=== PATIENT | female | born 1990 | race Caucasian/White ===

== ENCOUNTER 2016-07-22 17:22 | Emergency (ER) | payer OTHER ==
[2016-07-22 17:42] VITALS: BP 128/82; PULSE 82; RESP 14; O2SAT 100
--- NOTE | 2016-07-22 18:44 | ED.REPORT ---
HPI-Head Prob / Injury Date of Service Jul 22, 2016 ED Provider: Doc,Ed MD History of Present Illness: head pain since yesterday, pressure and burning pain. denies injury. no medications. no nausea. not feeling ill. no others sick. is starving, wants to eat and is able to. primary care was queck. will follow with office. 01/25 pain, has seasonal allergies. Nursing Notes Stated Complaint: PROGESSIVE HEAD PAIN SENT FROM FOR CT Chief Complaint: Headache Nursing Notes Reviewed: Yes Allergies: Coded Allergies: No Known Allergies (Unverified Allergy, Unknown, 02/03/15) General Time Seen by Provider: 18:39 Chief Complaint Other (head pain) Hx Obtained From: Patient Onset Occurred: Yesterday Severity: Current: Pain level 10 out of 10 Past Medical History Past Medical History seasonal allergies Past Surgical History pseudotumor cebrei with shunt placement, pilondial cyst Reports: Cholecystectomy Smoking History Current Every Day Smoker (1/4 pack a day for 10 years) Social History Alcohol Use: Denies alcohol use Drug Use: Denies drug use Other Social History: Occupation lives with boyfriend, no work or school 07/23/2015 Ambulatory Status Independent Review of Systems Basic Review of Systems Respiratory: No shortness of breath, No cough, No wheeze Hematologic: No bleeding, No bruising Psychiatric: Normal thought content Physical Exam Initial Vital Signs Vital Signs (First) Date Time Temp Pulse Resp B/P Pulse Ox O2 Delivery O2 Flow Rate FiO2 07/22/16 17:42 82 14 128/82 100 Room Air Initial VS: Reviewed, Vital signs normal Respiratory: Breath sounds normal, Clear to auscultation, No respiratory distress Cardiovascular: Regular rate & rhythm, Heart sounds normal, Intact distal pulses Abdomen / GI: Soft, Non-tender, No guarding, No rebound, No distention Back: No CVA tenderness Lymphatic: No lymphadenopathy Extremities: Vascular intact, Neuro intact, No swelling, No tenderness Skin: Warm, Dry, No cyanosis Psychiatric: Mood/affect normal, Behavior normal, Normal thought content General/Constitutional: Awake, Alert, No acute distress, Well appearing, Well developed, Well hydrated, Well nourished, Cooperative, Not toxic appearing Head / Eyes: Atraumatic, Normocephalic, PERRL, EOMI, No nystagmus ENT: Atraumatic, Airway patent, Mucous membranes moist, Pharynx NL Neck: Atraumatic, Supple, No meningismus, Full range of motion Neurologic: Oriented X3, Speech NL, No motor deficits Respiratory / Chest: Atraumatic, Breath sounds NL, Breath sounds = bilat Cardiovascular: Heart rate NL, Regular rhythm, Heart sounds NL, No gallop Interpretation & Diagnostics Interpretation & Diagnostics: INDICATIONS: head pain TECHNIQUE: Noncontrast 3.0 mm axial images acquired from the frontal sinuses to the mid-sella, with coronal and sagittal reformats. COMPARISON: [facility], CT, CT BRAIN WO CON, 07/22/2016, 19:09. FINDINGS: Image quality: Excellent. Maxillary Sinuses: No bony remodeling or destruction. There is mild mucosal thickening in the left maxillary sinus with associated air-fluid level. Ethmoid Air Cells: No bony remodeling or destruction. Sinuses are clear. Sphenoid Sinuses: No bony remodeling or destruction. There is mild mucosal thickening bilaterally with a small air-fluid level in the left sphenoid sinus. Frontal Sinuses: No bony remodeling or destruction. Sinuses are clear. Ostiomeatal Complexes: There is moderate mucosal thickening along the left ostiomeatal complex. No Lucas cells. Miscellaneous: Visualized intra-orbital contents are normal. No malini bullosa or paradoxical turbinate curvature. There is minimal rightward nasal septal deviation. IMPRESSION: 1. Sinus mucosal disease with air fluid levels in the left maxillary and sphenoid sinuses suggesting acute sinusitis. 2. Mucosal opacification of the left ostiomeatal complex Dictated by: Benjamin Torres M.D. on 07/22/2016 at 19:35 Approved by: Benjamin Torres M.D. on 07/22/2016 at 19:40 Lab Results Interpretation Result Diagram: 07/22/16 1858 07/22/16 1858 Test 07/22/16 18:58 White Blood Count 13.6th/mm3 (3.8-10.1) Red Blood Count 4.59mil/mm3 (3.90-5.20) Hemoglobin 13.5g/dL (12.0-15.6) Hematocrit 40.5% (35.0-46.0) Mean Corpuscular Volume 88.2fL (81-100) Mean Corpuscular Hemoglobin 29.4pg (27.0-35.0) Mean Corpuscular Hemoglobin Concent 33.3% (32.0-37.0) Red Cell Distribution Width 12.7% (12.3-15.4) Platelet Count 337bil/L (150-400) Neutrophils (%) (Auto) 63.4% (40-74) Lymphocytes (%) (Auto) 25.3% (14-46) Monocytes (%) (Auto) 5.9% (4-12) Eosinophils (%) (Auto) 4.8% (0-5) Basophils (%) (Auto) 0.4% (0-3) Erythrocyte Sedimentation Rate 10mm/hr (0-32) Sodium Level 140mEq/L (134-144) Potassium Level 4.5mEq/L (3.5-5.2) Chloride Level 103mEq/L (97-108) Carbon Dioxide Level 23mmol/L (18-29) Blood Urea Nitrogen 13mg/dL (6-20) Creatinine 0.61mg/dL (0.57-1.00) Estimat Glomerular Filtration Rate 167mL/min (>59) Glucose Level 89mg/dL (60-99) Calcium Level 9.7mg/dL (8.5-10.1) Total Bilirubin 0.3mg/dL (0.0-1.2) Aspartate Amino Transf (AST/SGOT) 16U/L (0-50) Alanine Aminotransferase (ALT/SGPT) 16U/L (0-32) Alkaline Phosphatase 71U/L (25-150) Total Protein 7.8g/dL (6.4-8.4) Albumin 4.6g/dL (3.4-5.0) Hold Shaffer Top Tube Received (Received) CT Head Interpretation ECHNIQUE: Noncontrast 4.5 mm thick angled axial sections acquired from the foramen magnum to the vertex, with coronal reformats. COMPARISON: None. FINDINGS: Image quality: Excellent. CSF spaces: Basal cisterns are patent. No extra-axial fluid collections. Ventricles are normal in size and shape. There is a right posterior parietal ventriculotomy shunt catheter which slightly crosses midline with tip posterior to the left thalamus. There is associated mild streak artifact. Brain: No intracranial hemorrhage, mass, or mass effect. Bright-white matter interface is normal. Skull and face: Calvarium and visualized facial bones demonstrate no acute fractures. Sinuses: Visualized sinuses demonstrate air-fluid levels in the left maxillary sinus which are partially visualized. There is mild mucosal thickening within the left sphenoid sinus. Mastoid air cells are clear. IMPRESSION: 1. No definite acute intracranial abnormality. 2. Right parietal ventricular shunt catheter demonstrated without evidence of ventriculomegaly. 3. Sinus mucosal disease with air-fluid levels in the left maxillary sinus compatible with acute sinusitis. Dictated by: Benjamin Torres M.D. on 07/22/2016 at 19:24 Approved by: Benjamin Torres M.D. on 07/22/2016 at 19:27 Re-Eval/Medical Decision Med Decision/Clinical Course 26 year old female presents with 1 day hx of head pain with burning sensation in center of face. CT indicates acute sinusitis. No sign of closed head injury or subdural hematoma Discharge & Departure Primary Impression: Sphenoid sinusitis Chronicity: acute Disposition: Home Patient Instructions: Sinusitis (ED) Additional Instructions: From your description of your symptoms and the CT, acute sphenoid sinusitis is present. You received the first dose of antibiotics in the ER. Continue with augmentin in the am and pm for 14 days. Please call ENT Dr. Stone for follow up in that time frame. You may need to be on antibiotics for an additional 14 days. REturn with any concerns. Referrals: Mychal Sorto V. ([place]) EDSupervising Provider for APC: Zachery Tyler MD copies to: Mychal Sorto Sue ARNP ([place]) Jul 22, 2016 18:44
[2016-07-22 19:07] LABS: BASOPHILS % (AUTO) 0.4 % (0-3); EOSINOPHILS % (AUTO) 4.8 % (0-5); MONOCYTES % (AUTO) 5.9 % (4-12); Mean Corpuscular Hemoglobin 29.4 pg (27.0-35.0); Mean Corpuscular Volume 88.2 fL (81-100); NEUTROPHILS % (AUTO) 63.4 % (40-74); Platelet Count 337 bil/L (150-400)
--- NOTE | 2016-07-22 19:29 | DRSVH ---
PROCEDURE: CT BRAIN WITHOUT CONTRAST ([id number]) INDICATIONS: head pain TECHNIQUE: Noncontrast 4.5 mm thick angled axial sections acquired from the foramen magnum to the vertex, with c oronal reformats. COMPARISON: None. FINDINGS: Image quality: Excellent. CSF spaces: Basal cisterns are patent. No extra-axial fluid collections. Ventricles are normal in size and shape. 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 There is associated mild streak artifact. Brain: No intracranial hemorrhage, mass, or mass effect. Bright-white matter interface is normal. Skull and face: Calvarium and visualized facial bones demonstrate no acute fractures. Sinuses: Visualized sinuses demonstrate air-fluid levels in the left maxillary sinus which are parti ally visualized. There is mild mucosal thickening within the left sphenoid sinus. Mastoid air cells are clear. IMPRESSION: 1. No definite acute intracranial abnormality. 2. Right parietal ventricular shunt catheter demonstrated without evidence of ventriculomegaly. 3. Sinus mucosal disease with air-fluid levels in the left maxillary sinus compatible with acute sin usitis. Dictated by: Benjamin Torres M.D. on 07/22/2016 at 19:24 Approved by: Benjamin Torres M.D. on 07/22/2016 at 19:27
[2016-07-22 19:31] LABS: ERYTHROCYTE SEDIMENTATION RATE 10 mm/hr (0-32)
[2016-07-22] MEDS ORDERED: Amoxicillin-Clav 875-125 mg Tablet PO ONE (19:40)
--- NOTE | 2016-07-22 19:42 | DRSVH ---
PROCEDURE: CT SINUSES ([id number]) INDICATIONS: head pain TECHNIQUE: Noncontrast 3.0 mm axial images acquired from the frontal sinuses to the mid-sella, with coronal and sagittal reformats. COMPARISON: [facility], CT, CT BRAIN WO CON, 07/22/2016, 19:09. FINDINGS: Image quality: Excellent. Maxillary Sinuses: No bony remodeling or destruction. There is mild mucosal thickening in the left maxillary sinus with associated air-fluid level. Ethmoid Air Cells: No bony remodeling or destruction. Sinuses are clear. Sphenoid Sinuses: No bony remodeling or destruction. There is mild mucosal thickening bilaterally w ith a small air-fluid level in the left sphenoid sinus. Frontal Sinuses: No bony remodeling or destruction. Sinuses are clear. Ostiomeatal Complexes: There is moderate mucosal thickening along the left ostiomeatal complex. No Salter ller cells. Miscellaneous: Visualized intra-orbital contents are normal. No malini bullosa or paradoxical turbi mary curvature. There is minimal rightward nasal septal deviation. IMPRESSION: 1. Sinus mucosal disease with air fluid levels in the left maxillary and sphenoid sinuses suggesting acute sinusitis. 2. Mucosal opacification of the left ostiomeatal complex Dictated by: Benjamin Torres M.D. on 07/22/2016 at 19:35 Approved by: Benjamin Torres M.D. on 07/22/2016 at 19:40
[2016-07-22 20:00] VITALS: BP 128/70; PULSE 77; RESP 16; O2SAT 100
== END 2016-07-22 20:01 | disposition home or self-care (01) ==
LOC: SED 17:22 → EDUNIT# 17:22 → SED 20:01
DX: J01.30 Acute sphenoidal sinusitis, unspecified (principal); F17.200 Nicotine dependence, unspecified, uncomplicated
CPT/HCPCS: 36415; 70450; 70486; 80053; 85025; 85651; 96372; 99284; J1885